=== PATIENT | male | born 1980 | race Hispanic/Latino ===

== ENCOUNTER → 2024-05-07 09:09 | Outpatient (REF) | payer OTHER, SELFPAY | LOC: MRI 09:09 | PROVIDERS: ATTENDING PHYSICIAN Student in an Organized Health Care Education/Training Program; FAMILY PHYSICIAN Family Medicine | DX: M54.50 Low back pain, unspecified (principal); M54.16 Radiculopathy, lumbar region; M41.9 Scoliosis, unspecified | CPT/HCPCS: 72148 ==

== ENCOUNTER → 2024-08-24 11:24 | Outpatient (REF) | payer OTHER, SELFPAY | LOC: RAD 11:24 | PROVIDERS: ATTENDING PHYSICIAN Physician Assistant; FAMILY PHYSICIAN Family Medicine | DX: J33.9 Nasal polyp, unspecified (principal) | CPT/HCPCS: 70486 ==

== ENCOUNTER → 2024-10-11 15:30 | Outpatient (REF) | payer OTHER, SELFPAY | LOC: CLAB 15:30 | PROVIDERS: ATTENDING PHYSICIAN Otolaryngology | DX: J32.8 Other chronic sinusitis (principal); J32.4 Chronic pansinusitis; J33.9 Nasal polyp, unspecified | CPT/HCPCS: 88304; 88311 ==

== ENCOUNTER 2025-04-23 06:17 | Day surgery (SDC) | payer OTHER, SELFPAY | END 2025-04-23 11:38 | disposition home or self-care (01) | LOC: GI 06:17 | PROVIDERS: ATTENDING PHYSICIAN Internal Medicine Gastroenterology | DX: Z12.11 Encounter for screening for malignant neoplasm of colon (principal); Z83.719 Family history of colon polyps, unspecified; K64.8 Other hemorrhoids | CPT/HCPCS: G0105 ==